=== PATIENT | female | born 1995 | race Caucasian/White ===

== ENCOUNTER 2025-03-02 13:42 | Outpatient (AMB) | payer MEDICAID, SELFPAY ==
[2025-03-02 14:08] VITALS: BP 124/82; PULSE 86; RESP 16; TEMP 36.8; O2SAT 98; BMI 26.8
--- NOTE | 2025-03-02 14:08 | OBCLNT_ITS ---
Vital Signs 03/02/25 14:08 Height 1.68 m Height Method Stated Weight 75.41 kg Weight Measurement Method Standing Scale BMI 26.8 BP 124/82 Blood Pressure Source Automatic Cuff Blood Pressure Location Left Upper Arm Position Sitting Respiration 16 Pulse 86 Pulse Source Monitor Temp 98.2 F Temp Source Oral Pulse Oximetry (%) 98 Oxygen Delivery Method Room Air Allergies/Home Meds Allergies & Medications Allergies No Known Allergies Allergy (Verified 03/02/25 14:09) Medication Reconciliation vitamins-iron fumarate 66 mg iron-folic acid 1 mg tablet tab PO 03/02/25 [History Confirmed 03/02/25] Intake Visit Data Collection New Patient or Established: New Patient (never been to [facility]) Reason for Visit:: TRANSFER CARE Seen by Clinical Staff ONLY (RN/MA): No Blending Machine Feeder Required: Yes Do You Feel Safe at Home: Yes Authorities Contacted: N/A PCP or OBGYN visit in last 3 months: Yes Hx Now: Yes Are you currently on any form of Control: No Last menstrual period: 10/06/24 Pain Present Currently: No Pain Scale Used: Sullivan-Murrell/Numerical Pain scale:: 0 Smoking Status Smoking Status: Never smoker Immunizations Flu Vaccine in the Last 12 Months: Yes Flu Vaccine Exclusion Criteria: Already Received Questionnaires Covid-19 Vaccine Questionnaire Has patient been vacinated for Covid-19 Have you been vacinated for Covid-19: Yes PHQ-9 PHQ-2 Over the last 2 weeks, how often have you been bothered by any of the following problems? 1. Little interest or pleasure in doing things: not at all 2. Feeling down, depressed, or hopeless: not at all Total score: 0 PHQ-9 3. Trouble falling or staying asleep, or sleeping too much: Not at all 4. Feeling tired or having little energy: Not at all 5. Poor appetite or overeating: Not at all 6. Feeling bad about yourself - or that you are a failure or have let yourself or your family down: Not at all 7. Trouble concentrating on things, such as reading the newspaper or watching television: Not at all 8. Moving or speaking so slowly that other people could have noticed? - Or the opposite - being so fidgety or restless that you have been moving around a lot more than usual: not at all 9. Thoughts that you would be better off or of hurting yourself in some way: Not at all Total score: 0 Source: Developed by Drs. Tevin Childs, Kimberly Eric, Cristiano Jansen and colleagues, with an educational jonathan from [employer]. Depression screen completed yes Social History Living Situation History Marital Status: Lives With: Family Housing: House Tobacco History Smoking Status: Never smoker Second Hand Smoke Exposure: No Alcohol History Alcohol Intake: Former Alcohol Intake Frequency: holidays/special occasions only Domestic Abuse History Do You Feel Safe at Home: Yes History of Present Illness HPI Narrative 29-year-old 1 para 0. For OBI. Patient is a transfer from [facility] and she brought her records. She had labs done. History of irregular periods. Her last. October 06, 2024. And this gives EDC of July 12, 2025. Denies leaking, bleeding, cramping. No nausea and vomiting. Denies any existence of chronic illness. She has a history having a drink occasionally prior to . None now she is taking prenatals. She has had no surgeries. And they are happy about the OB Initial Visit OB Flowsheet OB Flowsheet Initial Weight: Not Recorded Date -?-?-?-?-?-?-?-?-?-?-?-?- EGA Weight BP Alb Glu CTX Pres Fundal ht FHR Mov Dilation Station Effac ement Hx Notes Visit Note 03/02/25 -?-?-?-?-?-?-?-?-?-?-?-?- 21w 0d 75.41 kg 124/82 absent unknown 14 145 absent 29-year-old 1 para 0 for OBI. She transferred from [facility] with her records. Her last period October 06, 2024. This gives EDC July 12, 2025. She has a regular menses. By palpation uterus feels about 14 weeks size. Denies leaking, bleeding or cramping. No discomforts of We did NIPT and spinal muscular atrophy today. We reviewed labs. Schedule appointment at [facility] for ultrasound. Discussed SAB precautions. Return in 4 weeks OB check Menstrual History Menstrual reliability: approximate (month known) Flow: heavy Menstrual regularity: irregular Monthly: No Age at menarche: 15 On control pills at conception: No Associated symptoms (LMP): Reports nausea, fatigue and breast tenderness OB History : 1 Infection History & Risk Evaluation History of STDs: none Genetic Screening & History Genetic Screening/Teratology Counseling - Includes patient, baby's father, or anyone in either family with: 1. Patient's age 35 years or older as of estimated date of delivery: No 2. Thalassemia (Montenegrin, Mongolian, Mediterranean, or Background); MCV less than 80: No 3. Neural Tube Defect (Meningomyelocele, Spina Bifida, or Anencephaly): No 4. Congenital Heart Defect: No 5. Down Syndrome: No 6. Victoriano-Sachs (Ashkenazi Yarsanism, Cajun, Ukrainian Modena): No 7. Oumou Disease (Ashkenazi Yarsanism): No 8. Familial Dysautonomia (Ashkenazi Yarsanism): No 9. Sickle Cell Disease or Trait (): No 10. Hemophilia or other blood disorders: No 11. Muscular Dystrophy: No 12. Cystic Fibrosis: No 13. Rolette's Chorea: No 14. Mental Retardation/Autism: No 15. Other inherited genetic or chromosomal disorder: No 16. Maternal Metabolic Disorder (EG,TYPE 1 Diabetes, PKU): No 17. Patient or baby's father had a child with defects not listed above: No 18. Recurrent loss or a stillbirth: No 19. Medications (including supplements, vitamins, herbs or otc drugs)/illicit/recreational drugs/alcohol since last menstrual period: No 20. Any other: No Infection History 1. Live with someone with TB or exposed to TB: No 2. Rash or viral illness since last menstrual period: No 3. Hepatitis B,C: No Other (see comments) Source: [employer] Review of Systems Review of Systems Systems Reviewed: All systems reviewed, normal except as documented Constitutional Constitutional: Reports fatigue Gastrointestinal Gastrointestinal: Reports nausea Endocrine Endocrine: Reports fatigue Exam General Limitations: no limitations General Appearance: alert, in no apparent distress, comfortable, cooperative, healthy appearing, well developed and well groomed Head Head exam: atraumatic, normocephalic and normal inspection Chest Chest inspection: Present normal inspection and symmetric chest wall rise Resp Respiratory exam: Present normal lung sounds bilaterally Card Cardiovascular exam: Present regular rate, normal rhythm and normal heart sounds Abdominal Abdominal exam: Present soft and normal bowel sounds Psych Psychiatric exam: Present normal affect and normal mood Office Procedures OBC Clinic LOC & Office Proc's Nursing/Assessment Patient Status: Established Patient OB Clinic Nursing Assessment: Medication Reconciliation, Update PMH in EMR and Vital Signs OB Clinic Coordination of Care: Complex Care and Chronic Disease 1-5, Consent,records obtained, informed consent, Education Simp Pt/Fam, 1 Ins Authorization, Lab and Imaging orders, Results/Orders obtained and Staff clarify orders Special Needs: Heart tones Established Patient Charge Established Patient Point Assignment: 150 Established Patient Point Charge: EP Level 4 (120-155) Assessment & Plan Diagnosis / Problem List (1) Encounter for supervision of high risk in second trimester, antepartum: Status: Acute Plan Reviewed labs. Schedule NIPT and spinal muscular atrophy. Schedule ultrasound with [facility] for anatomy scan dating. Return in 4 weeks OB check Additional Plan Follow Up: 4 Weeks (obc)
== END 2025-03-02 14:34 | disposition home or self-care (01) ==
LOC: HODSOBC 13:42
PROVIDERS: Supervising Provider Advanced Practice Midwife; Visit Provider Advanced Practice Midwife
DX: O09.92 Supervision of high risk pregnancy, unspecified, second trimester (principal); Z3A.21 21 weeks gestation of pregnancy
CPT/HCPCS: 99214; G0463

== ENCOUNTER 2025-03-29 08:59 | Outpatient (AMB) | payer MEDICAID, SELFPAY ==
--- NOTE | 2025-03-29 09:00 | OBCLNT_ITS ---
Vital Signs 03/29/25 09:07 Height 1.68 m Height Method Stated Weight 78.018 kg Weight Measurement Method Standing Scale BMI 27.6 BP 122/79 Blood Pressure Source Automatic Cuff Blood Pressure Location Left Upper Arm Position Sitting Respiration 18 Pulse 91 Pulse Source Monitor Temp 98.1 F Temp Source Oral Pulse Oximetry (%) 98 Oxygen Delivery Method Room Air Allergies/Home Meds Allergies & Medications Allergies No Known Allergies Allergy (Verified 03/29/25 09:11) Medication Reconciliation vitamins-iron fumarate 66 mg iron-folic acid 1 mg tablet tab PO 03/02/25 [History Confirmed 03/29/25] Immunizations Immunizations Flu Vaccine in the Last 12 Months: Yes Date of most recent flu vaccination: 03/29/25 Flu Vaccine Exclusion Criteria: Already Received Care OB Visit Log OB Flowsheet Initial Weight: Not Recorded Date -?-?-?-?-?-?-?-?-?-?-?-?- EGA Weight BP Alb Glu CTX Pres Fundal ht FHR Mov Dilation Station Effacement Hx Notes Visit Note 03/02/25 -?-?-?-?-?-?-?-?-?-?-?-?- 21w 0d 75.41 kg 124/82 absent unknown 14 145 absent 29-year-old 1 para 0 for OBI. She transferred from [facility] with her records. Her last period October 06, 2024. This gives EDC July 12, 2025. She has a regular menses. By palpation uterus feels about 14 weeks size. Denies leaking, bleeding or cramping. No discomforts of We did NIPT and spinal muscular atrophy today. We reviewed labs. Schedule appointment at [facility] for ultrasound. Discussed SAB precautions. Return in 4 weeks OB check 03/29/25 -?-?-?-?-?-?-?-?-?-?-?-?- 24w 6d 78.018 kg 122/79 absent unknown 22 145 active Reports movement. Denies leaking, bleeding, contractions. No OB complaints Follow-up [facility] appointment April 25. Third trimester labs with SMA and NIPT today. Discussed labor precautions. Return in 4 weeks OB check YADIEL Calculator Estimated Delivery Date Method Current WG Current Estimate 07/13/25 LMP (Uncertain) 24w 6d Notes Visit Date: 03/29/25 Last Updated by: Patricia Felix CNM CF- Visit Date: 03/02/25 Last Updated by: Patricia Felix CNM 29 yo poor dates/irreg menses/ LMP: 10/06/24, EDC: 08/11/25 OB panel: A+,abs-, rpr;;nr, rub imm, HBSAG-,HIV-,HC-, GC/CT-, UA-, UT- 14/42/328 Office Procedures OBC Clinic LOC & Office Proc's Nursing/Assessment Patient Status: Established Patient OB Clinic Nursing Assessment: Medication Reconciliation, Update PMH in EMR and Vital Signs OB Clinic Coordination of Care: Complex Care and Chronic Disease 1-5, Consent,records obtained, informed consent, Education Simp Pt/Fam, 1 Ins Authorization, Lab and Imaging orders, Results/Orders obtained and Staff clarify orders Special Needs: Heart tones Established Patient Charge Established Patient Point Assignment: 150 Established Patient Point Charge: EP Level 4 (120-155) Injection/Vaccine Admin Admin 1st Vaccine: Yes Immunizations flu vac ts (6mos up)-PF 45 mcg(15mcg x3)/0.5 mL IM syringe Performing Provider: Patricia Felix CNM Performing Location: [facility] Administered by: Jen Morse MA on 03/29/25 09:11 Dose Route Admin Location Dispensed Lot Number Expiration Date Pack age [facility] Melt Superintendant 0.5 mL IM Left Deltoid 0.5 mL [id number] 09/26/25 [id number] Epic! VIS Given Date VIS Provided VIS Publication Date 03/29/25 Single Vaccine 24 Eligibility Eligibility Date Funding Source Public [facility] Assessment & Plan Diagnosis / Problem List (1) Encounter for supervision of high risk in second trimester, antepartum: Status: Acute Plan Patient has MFM appointment April 25. Third trimester labs and NIPT and SMA ordered today. Discussed precautions. Return in 4 weeks OB check. Continue vitamins Additional Plan Follow Up: 4 Weeks (obc)
[2025-03-29 09:07] VITALS: BP 122/79; PULSE 91; RESP 18; TEMP 36.7; O2SAT 98; BMI 27.6
== END 2025-03-29 09:17 | disposition home or self-care (01) ==
LOC: HODSOBC 08:59
PROVIDERS: Supervising Provider Advanced Practice Midwife; Visit Provider Advanced Practice Midwife
DX: O09.92 Supervision of high risk pregnancy, unspecified, second trimester (principal); Z3A.24 24 weeks gestation of pregnancy; Z23 Encounter for immunization
CPT/HCPCS: 90471; 90656; 99214; G0463